=== PATIENT | female | born 1975 | race Two or more races ===

== ENCOUNTER 2022-11-02 08:48 | Inpatient (IN) | payer OTHER ==
[~2022-11-02] VITALS: Ht 157.5 cm; Wt 80.3 kg
[2022-11-11] MEDS ORDERED: IBUPROFEN800 MG PO (07:10)
[2022-11-11] MEDS ORDERED: GABAPENTIN300 MG PO (07:10)
[2022-11-11] MEDS ORDERED: MUCINEX FAST-M180 M3 PO (07:13)
== END 2022-11-11 10:47 | disposition home or self-care (01) | DRG 743 ==
LOC: O/R 11-09 06:10 → SURG 11-09 08:45 → OB/GYN 11-09 11:46
PROVIDERS: ADMIT Obstetrics & Gynecology Gynecology; ATTEND Obstetrics & Gynecology Gynecology
PROC: 0UT50ZZ Resection of Right Fallopian Tube, Open Approach (ICD-10-PCS; 2022-11-09)
PROC: 0UT90ZZ Resection of Uterus, Open Approach (ICD-10-PCS; principal; 2022-11-09 08:45)
DX: D25.9 Leiomyoma of uterus, unspecified (principal); Z20.822 Contact with and (suspected) exposure to COVID-19